=== PATIENT | male | born 1970 | race Caucasian/White ===

== ENCOUNTER 2019-01-03 12:51 | Outpatient (CLI) | payer BC ==
--- NOTE | 2019-01-03 15:03 | ULT ---
BILATERAL UPPER EXTREMITY VENOUS DOPPLER ULTRASOUND FOR DIALYSIS ACCESS: Date: 01/03/19 FINDINGS: RIGHT UPPER EXTREMITY: The right cephalic vein measures 1.9 mm in the proximal arm, 2.2 mm in the mid arm, 1.5 mm in the dis brittaney arm, 1.9 mm in the antecubital fossa, 3.2 mm in the proximal forearm, 2.4 mm in the mid forearm, and 2.2 mm in the distal forearm. The right basilic vein measures 6.4 mm in the proximal arm, 5.9 mm in the mid arm, 5.9 mm in the dist al arm, 4.7 mm in the antecubital fossa, 2.8 mm in the proximal forearm, 1.5 mm in the mid forearm, a nd 1.5 mm in the distal forearm. The right brachial artery measures 3.5 mm, radial artery measures 0.8 mm, and ulnar artery measures 2 .2 mm. LEFT UPPER EXTREMITY: The left cephalic vein measures 1.7 mm in the proximal arm, 1.3 mm in the mid arm, 1.1 mm in the dist al arm, 1.5 mm in the antecubital fossa, 2.8 mm in the proximal forearm, 3.6 mm in the mid forearm, a nd 2.9 mm in the distal forearm. The left basilic vein measures 6.8 mm in the proximal arm, 6.8 mm in the mid arm, 6.5 mm in the dista l arm, 4.8 mm in the antecubital fossa, 1.1 mm in the proximal forearm, 1.5 mm in the mid forearm, an d 1.5 mm in the distal forearm. The left brachial artery measures 4.1 mm, radial artery measures 1.3 mm, and ulnar artery measures 2. 5 mm. POS: TPC
== END 2019-01-03 12:52 | disposition home or self-care (01) ==
LOC: BICULT 12:51
PROVIDERS: ATTEND Internal Medicine
DX: Z01.818 Encounter for other preprocedural examination (principal); N18.6 End stage renal disease
CPT/HCPCS: 93970; G0365

== ENCOUNTER 2019-06-06 06:07 | Day surgery (SDC) | payer BC ==
--- NOTE | 2019-05-01 12:17 | HP ---
HISTORY OF PRESENT ILLNESS: Dario Garcia is a 49-year-old male patient, recently had problems with sinus bradycardia resulting in syncope at the dialysis center leading him to have a transfemoral cardiac pacemaker placed and since then has been feeling much better. We previously had scheduled a left arm fistula, and he is ready to have that done. He is considered peritoneal dialysis, but has decided against this. Plan is for left arm fistula or dialysis graft. He understands risks and benefits, procedures and consents. Vein mapping suggested, we might be able to do a seminal fistula. We will explore that in the operating room under regional TIVA. MEDICATIONS: Carvedilol b.i.d. PAST MEDICAL HISTORY: Hypertension; hyperlipidemia; diabetes; end-stage renal disease, on maintenance dialysis Wednesday, Wednesday, and Wednesday at [facility]. Recently had a pacemaker placed, evaluated in [place]. Followup with Dr. Kleber Buckley in [place]. HABITS: Tobacco, none. Alcohol, none. PAST SURGICAL HISTORY: Hemodialysis catheter, right IJ; right knee surgery; pacemaker placed. PHYSICAL EXAMINATION: VITAL SIGNS: Weight 139 pounds, 5 feet 7 inches, 21 BMI, blood pressure 101/54, pulse 71, temperature 98.1 degrees. HEAD, EYES, EARS, NOSE, AND THROAT: Unremarkable. LUNGS: Clear to auscultation. CARDIAC: Rhythm without murmur or gallop. ABDOMEN: Soft and nontender. No masses. Palpable radial pulses bilaterally. Hemodialysis catheter right IJ. EXTREMITIES: Without edema. ASSESSMENT: End-stage renal disease, on maintenance dialysis Wednesday, Wednesday, and Wednesday in [facility]. PLAN: Placement of hemodialysis fistula, left arm, probably less likely graft. He understands risks and benefits. Job ID: [id number]
[2019-06-05 11:53] VITALS: BMI 21.1
[2019-06-06] MEDS ORDERED: Bupivacaine HCl 0.5%/Epinephrine 1:200,000/PF 30 ml Vial ONE (06:54)
[2019-06-06] MEDS ORDERED: Heparin 5,000 UNITS/ML VIAL ONE (06:54)
[2019-06-06] MEDS ORDERED: Ioversol 68 % 50 ML VIAL ONE (07:01)
[2019-06-06] MEDS ORDERED: Protamine Sulfate 50 MG/5 ML VIAL ONE (07:01)
[2019-06-06] MEDS ORDERED: Lidocaine 2% PF 5 ML VIAL ONE (07:01)
[2019-06-06] MEDS ORDERED: Fentanyl 100 MCG/2 ML VIAL ONE (07:02)
[2019-06-06 07:28] LABS: #Basophils 0.1 thou/uL (0.0-0.2); #Eosinphils 0.8 thou/uL (0.0-0.7); #Lymphocytes 2.1 thou/uL (1.20-3.40); #Monocytes 0.7 thou/uL (0.11-0.59); #Neutrophils 4.2 thou/uL (1.40-6.50); %Basophils 0.8 % (0.0-1.0); %Eosinophils 9.9 % (0.0-10.0); %Lymphocytes 26.6 % (21.0-51.0); %Monocytes 9.4 % (0.0-10.0); %Neutrophils 53.3 % (42.0-75.0); Hemoglobin 10.7 g/dL (14.0-18.0); Mean Corpuscular HGB CONC 35.4 g/dL (32.0-36.0); Mean Corpuscular Hemoglobin 35.8 pg (27.0-31.0); Mean Platelet Volume 7.1 fL (7.4-10.4); Platelet Count 252 thou/uL (130-400); RBC Distribution Width 14.4 % (11.5-14.5); White Blood Cell (WBC) Count 7.9 thou/uL (4.8-10.8)
[2019-06-06 07:49] LABS: Chloride 96 mmol/L (98-107); Potassium 3.7 mmol/L (3.5-5.1); Sodium 136 mmol/L (136-145)
[2019-06-06 07:50] LABS: Calcium 9.4 mg/dL (7.8-10.44); Glucose 249 mg/dL (70-105)
[2019-06-06 07:52] LABS: Anion Gap 13 mmol/L (10-20); Carbon Dioxide 31 mmol/L (22-29)
[2019-06-06 07:54] LABS: Calc. Creatinine Clearance 16 mL/min (70-130); Estimated GFR-MDRD 12
[2019-06-06 07:55] LABS: BUN (Urea Nitrogen) 22 mg/dL (8.9-20.6)
[2019-06-06] MEDS ORDERED: Heparin 10,000 UNITS/ 10 ML VIAL ONE (10:18)
--- NOTE | 2019-06-06 11:19 | OP ---
DATE OF PROCEDURE: 06/06/2019 PREOPERATIVE DIAGNOSES: End-stage renal disease, right internal jugular cuffed tunneled dialysis catheter. POSTOPERATIVE DIAGNOSES: End-stage renal disease, right internal jugular cuffed tunneled dialysis catheter without cephalic vein, left upper arm. PROCEDURES PERFORMED: Left arm primary fistula, perforating branch antecubital vein to the proximal radial artery with outflow through the basilic vein only with retrograde antecubital vein preserved, 4 mm coronary dilator calibration, excellent caliber vein and proximal radial artery. ANESTHESIA: General, local 0.5% Marcaine with epinephrine 30 mL mixed with 2% Xylocaine 10 mL, 20 mL volume mixture used. DESCRIPTION OF PROCEDURE: The patient was taken to the operating room, where under general anesthesia, left upper extremity was prepared with ChloraPrep and draped in routine fashion. Local anesthetic was infiltrated in the skin and subcutaneous tissue about the operative site. Incision was made in the proximal volar forearm below the antecubital fossa, carried down through skin and subcutaneous tissue, antecubital vein of excellent caliber, dissected free. Perforating branch dissected free. There was no communication to a cephalic vein. Cephalic vein could not be found. There was only basilic vein outflow. The vein was so large that an incision was made at the left wrist and carried down to skin and subcutaneous tissue, and the cephalic vein at the wrist was too small and subcutaneous tissue was approximated with 3-0 Monocryl, skin with subdermal 4-0 Monocryl and Gisela glue applied. Attention was then turned to the proximal forearm wound, where the proximal radial artery was dissected free with excellent caliber, and the patient was given 6000 units of heparin intravenously. After adequate circulation time, the perforating branch of the antecubital vein dissected free divided between clips. It was spatulated over branch point and interrogated with coronary dilators, placed in coronary dilators from 2 mm to 4 mm out the basilic vein outflow. Proximal radial artery clamped proximally and distally. Longitudinal arteriotomy was made sharply and end vein to side proximal artery anastomosis completed with continuous suture of 6-0 Prolene. Releasing the vascular clamps noting good Doppler signal in the basilic vein outflow. The patient tolerated procedure well. Good hemostasis was noted. Subcutaneous tissue was approximated with 3-0 Monocryl, skin with subdermal 4-0 Monocryl and Gisela glue applied. Local anesthetic infiltrated about the operative sites. Job ID: [id number]
== END 2019-06-06 10:30 | disposition home or self-care (01) ==
LOC: SDC 06:07
PROVIDERS: ATTEND Specialist
PROC: 031C0ZF Bypass Left Radial Artery to Lower Arm Vein, Open Approach (ICD-10-PCS; principal; 2019-06-06)
DX: I12.0 Hypertensive chronic kidney disease with stage 5 chronic kidney disease or end stage renal disease (principal); E11.22 Type 2 diabetes mellitus with diabetic chronic kidney disease; N18.6 End stage renal disease; E78.5 Hyperlipidemia, unspecified; I25.10 Atherosclerotic heart disease of native coronary artery without angina pectoris; Z79.82 Long term (current) use of aspirin; Z79.84 Long term (current) use of oral hypoglycemic drugs; Z79.899 Other long term (current) drug therapy; Z95.0 Presence of cardiac pacemaker; Z99.2 Dependence on renal dialysis
CPT/HCPCS: 36415; 80048; 85025; J0670; J0690; J1644; J2001; J2720; J3010; Q9967

== ENCOUNTER 2019-07-06 07:13 | Outpatient (CLI) | payer BC ==
[2019-07-06 13:12] LABS: #Basophils 0.1 thou/uL (0.0-0.2); #Eosinphils 0.6 thou/uL (0.0-0.7); #Lymphocytes 2.3 thou/uL (1.20-3.40); #Monocytes 0.7 thou/uL (0.11-0.59); %Eosinophils 7.2 % (0.0-10.0); %Lymphocytes 26.4 % (21.0-51.0); %Monocytes 7.9 % (0.0-10.0); %Neutrophils 57.5 % (42.0-75.0); Hemoglobin 13.8 g/dL (14.0-18.0); Mean Corpuscular HGB CONC 33.5 g/dL (32.0-36.0); Mean Corpuscular Hemoglobin 35.3 pg (27.0-31.0); Mean Platelet Volume 7.7 fL (7.4-10.4); Platelet Count 275 thou/uL (130-400); RBC Distribution Width 15.8 % (11.5-14.5); White Blood Cell (WBC) Count 8.8 thou/uL (4.8-10.8)
[2019-07-06 13:28] LABS: Anion Gap 20 mmol/L (10-20); BUN (Urea Nitrogen) 30 mg/dL (8.9-20.6); Calc. Creatinine Clearance 0 mL/min (70-130); Calcium 9.6 mg/dL (7.8-10.44); Carbon Dioxide 24 mmol/L (22-29); Chloride 98 mmol/L (98-107); Estimated GFR-MDRD 8; Glucose 230 mg/dL (70-105); Potassium 4.1 mmol/L (3.5-5.1); Sodium 138 mmol/L (136-145)
== END 2019-07-06 07:14 | disposition home or self-care (01) ==
LOC: LABBT 07:13
PROVIDERS: ATTEND Specialist
DX: Z01.818 Encounter for other preprocedural examination (principal); N18.6 End stage renal disease
CPT/HCPCS: 80048; 85025; 93005; 93010

== ENCOUNTER 2019-07-11 11:59 | Day surgery (SDC) | payer BC ==
[2019-07-06 11:33] VITALS: BMI 21.1
--- NOTE | 2019-07-10 11:56 | HP ---
HISTORY OF PRESENT ILLNESS: Dario Garcia is a 49-year-old male, dialyzes at [facility] in [place], Wednesday, Wednesday, and Wednesday. He had a left upper arm fistula placed on 06/06/2019, outflow only, basilic vein. Cephalic vein was fibrotic and occluded. The patient will need a basilic vein transposition fistula in the next 2 to 3 weeks. We will plan this under general or regional per Anesthesia choice, IV access and blood draws through his dialysis catheter. He understands risks and benefits, consents. Occasionally, the patient intermittently has some numbness in his finger tips or thumb. He is on Neurontin 300 mg three times a day. I have reassured him this would improve with time. This has only been present since his surgery. The patient has a pacemaker placed in the past. MEDICATIONS: 1. Losartan. 2. Furosemide. 3. Carvedilol. 4. Fenofibrate. PAST MEDICAL HISTORY: Hypertension, dyslipidemia, diabetes, end-stage renal disease. PAST SURGICAL HISTORY: Right knee surgery, laser surgery, back, , Dr. Kleber Buckley placed a pacemaker. PHYSICAL EXAMINATION: VITAL SIGNS: Weight 136 pounds. Height, 5 feet and 7 inches HEAD EARS EYES, NOSE, AND THROAT: Unremarkable. LUNGS: Clear to auscultation . ABDOMEN: Soft and nontender. EXTREMITIES: Left arm basilic vein fistula outflow well healed. Good left hand strength. Warm fingers. Palpable radial pulse. ASSESSMENT AND PLAN: Basilic vein fistula in need of transposition. We will plan this under general or regional anesthesia per Anesthesia choice, evaluation on the date of surgery, he understands risks and benefits of surgery and consents. Job ID: [id number]
[2019-07-11] MEDS ORDERED: Heparin 10,000 UNITS/ 10 ML VIAL ONE (14:47)
== END 2019-07-11 15:05 | disposition home or self-care (01) ==
LOC: SDC 11:59
PROVIDERS: ATTEND Specialist
DX: I12.0 Hypertensive chronic kidney disease with stage 5 chronic kidney disease or end stage renal disease (principal); E11.22 Type 2 diabetes mellitus with diabetic chronic kidney disease; N18.6 End stage renal disease; Z53.9 Procedure and treatment not carried out, unspecified reason
CPT/HCPCS: 36416; J0690; J1644

== ENCOUNTER 2019-07-26 05:54 | Inpatient (IN) | payer BC ==
[2019-07-26] MEDS ORDERED: Propofol 500 MG/50 ML VIAL ONE (06:09)
[2019-07-26] MEDS ORDERED: Ioversol 68 % 50 ML VIAL ONE (06:18)
[2019-07-26] MEDS ORDERED: Protamine Sulfate 50 MG/5 ML VIAL ONE (06:18)
[2019-07-26] MEDS ORDERED: Bupivacaine HCl 0.5%/Epinephrine 1:200,000/PF 30 ml Vial ONE ×2 (06:18→09:25)
[2019-07-26] MEDS ORDERED: Lidocaine 2% PF 5 ML VIAL ONE (06:18)
[2019-07-26] MEDS ORDERED: Heparin 5,000 UNITS/ML VIAL ONE (06:18)
[2019-07-26 06:32] LABS: #Basophils 0.1 thou/uL (0.0-0.2); #Eosinphils 0.8 thou/uL (0.0-0.7); #Lymphocytes 2.6 thou/uL (1.20-3.40); #Monocytes 0.7 thou/uL (0.11-0.59); #Neutrophils 4.9 thou/uL (1.40-6.50); %Basophils 1.2 % (0.0-1.0); %Eosinophils 8.4 % (0.0-10.0); %Lymphocytes 28.6 % (21.0-51.0); %Monocytes 7.4 % (0.0-10.0); %Neutrophils 54.5 % (42.0-75.0); Mean Corpuscular HGB CONC 34.2 g/dL (32.0-36.0); Mean Corpuscular Hemoglobin 34.7 pg (27.0-31.0); Mean Platelet Volume 7.2 fL (7.4-10.4); Platelet Count 225 thou/uL (130-400); RBC Distribution Width 13.4 % (11.5-14.5); Red Blood Cell (RBC) Count 3.74 mill/uL (4.70-6.10); White Blood Cell (WBC) Count 9.1 thou/uL (4.8-10.8)
[2019-07-26] MEDS ORDERED: Fentanyl 100 MCG/2 ML VIAL ONE ×2 (06:37→09:46)
[2019-07-26] MEDS ORDERED: Midazolam HCl 2 mg/2 ml Vial ONE (06:37)
[2019-07-26 07:01] LABS: Anion Gap 17 mmol/L (10-20); BUN (Urea Nitrogen) 32 mg/dL (8.9-20.6); Calc. Creatinine Clearance 0 mL/min (70-130); Calcium 9.9 mg/dL (7.8-10.44); Carbon Dioxide 27 mmol/L (22-29); Chloride 95 mmol/L (98-107); Estimated GFR-MDRD 11; Glucose 229 mg/dL (70-105); Potassium 4.2 mmol/L (3.5-5.1); Sodium 135 mmol/L (136-145)
[2019-07-26] MEDS ORDERED: PROPOFOL 200 MG/20 ML VIAL ONE (09:25)
[2019-07-26] MEDS ORDERED: PHENYLEPHRINE-NS 100 MCG/ML 10 ML SYRINGE ONE (09:25)
[2019-07-26] MEDS ORDERED: ePHEDrine/0.9% NaCl/PF SYRINGE 50 mg/10 ml ONE (09:25)
--- NOTE | 2019-07-26 09:26 | OP ---
DATE OF PROCEDURE: 07/26/2019 PREOPERATIVE DIAGNOSIS: End-stage renal disease. POSTOPERATIVE DIAGNOSIS: End-stage renal disease. PROCEDURE PERFORMED: Left arm basilic vein transposition fistula. ANESTHESIA: Regional, TIVA. DESCRIPTION OF PROCEDURE: The patient was taken to the operating room where under intravenous sedation and regional anesthesia, left upper extremity was prepared with ChloraPrep and draped in routine fashion. Incision was made in the proximal volar forearm over through this old scar and carried down through skin and subcutaneous tissue of the medial upper arm to the axilla, carried down through skin and subcutaneous tissue, deep fascia, mobilizing the basilic vein, dividing branch between 4-0 silk ties and clips, mobilizing high in the axilla. A Marta-Chattyck tunneler was then used to create an anterior tunneled between the 2 incisions proximal forearm to the axilla. The patient was given 6000 units of heparin intravenously. The arterial inflow from the proximal radial artery was dissected free. Retrograde antecubital vein, cephalic vein forearm dissected free and doubly clipped distally and divided. The vein then transected, basilic vein and flushed with heparinized saline solution, distended nicely, connected to Marta Wick tunneler after marking it to prevent torsion. Vein brought through the tunnel and then disconnected from the tunneler and flushed with heparinized saline solution and flushed well and flowed well. The old stump from the arterial inflow was closed with continuous to and fro 6-0 Prolene and end basilic vein to forearm cephalic vein retrograde anastomosis created after spatulating the veins end-to-end anastomosis with 6-0 Prolene. After completing the anastomosis, the patient given 50 mg of protamine intravenously. There was good flow in the fistula. Avitene placed in the vein harvest bed, medial arm, good hemostasis noted. Subcutaneous tissue was approximated with 3-0 Monocryl, skin with phill. The patient tolerated the procedure well. Job ID: [id number]
[2019-07-26] MEDS ORDERED: hydrALAZINE 20 MG/ML VIAL ONE (09:34)
[2019-07-26] MEDS ORDERED: Aspirin 325 mg Enteric Coated Tablet ONE (09:34)
[2019-07-26] MEDS ORDERED: Nitroglycerin 0.4 MG TAB (25 Tab Bottle) ONE (09:35)
--- NOTE | 2019-07-26 09:51 | RAD ---
XR Chest 1 View Portable HISTORY: Chest pain COMPARISON: 05/02/2019 FINDINGS: The heart size is normal. Right sided venous catheter remains in place. The lungs are well expanded without pneumothorax or pleural effusions. There is a patchy infiltrate in the left lower lung. IMPRESSION: Findings suspicious for left-sided pneumonia.
[2019-07-26 10:44] LABS: CKMB 5.9 ng/mL (0-6.6); Troponin I 0.033 ng/mL (< 0.028)
[2019-07-26] MEDS ORDERED: Ketorolac Tromethamine 30 MG/ML VIAL ONE (12:15)
[2019-07-26 12:37] LABS: Troponin I 0.014 ng/mL (< 0.028)
[2019-07-26 12:39] LABS: CKMB 6.7 ng/mL (0-6.6)
--- NOTE | 2019-07-26 14:27 | CON ---
DATE OF CONSULTATION: REASON FOR CONSULTATION: Chest pain. PRIMARY CARE PHYSICIAN: Sravan Spencer MD HISTORY OF PRESENT ILLNESS: Mr. Garcia is a 49-year-old gentleman, who is a patient of Mr. Kleber Buckley. He has a previous history of VVIR implantable pacemaker performed at [facility]. He recently had AV fistula revision. After waking up from anesthesia, he developed chest pain. His pain appears worse with sitting up. It also appears worse with taking a deep breath. His pain initially was 8/10. During my arrival, his pain was down to 3/10. Nitroglycerin did not relieve his symptoms. Fentanyl did help. PAST MEDICAL HISTORY: End-stage renal disease, sick sinus syndrome, hyperlipidemia, hypertension, diabetes mellitus. CURRENT MEDICATIONS: Include, 1. Losartan. 2. Lasix. 3. Carvedilol. 4. Fenofibrate. PAST SURGICAL HISTORY: Knee surgery, pacemaker placement, back surgery. REVIEW OF SYSTEMS: A 10-point review of systems is reviewed as above, otherwise negative. PHYSICAL EXAMINATION: GENERAL: Patient is a pleasant gentleman who is in no acute distress. He does appear older than stated age. He does appear to be resting comfortably. VITAL SIGNS: Blood pressure 110/70, pulse 80, respirations 20. NEUROLOGIC: The patient is alert and oriented x3 with no focal neurologic deficits. HEENT: Sclerae without icterus. Mouth has moist mucous membranes with normal pallor. NECK: No JVD. Carotid upstroke brisk. No bruits bilaterally. LUNGS: Clear to auscultation with unlabored respirations. BACK: No scoliosis or kyphosis. CARDIAC: Regular rate and rhythm with normal S1 and S2. No S3 or S4 noted. No significant rubs, murmurs, thrills, or gallops noted throughout the precordium. PMI is not displaced. There is no parasternal heave. ABDOMEN: Soft, nontender, nondistended. No peritoneal signs present. No hepatosplenomegaly. No abnormal striae. EXTREMITIES: 2+ femoral and 2+ dorsalis pedis pulses. No cyanosis, clubbing, or edema. SKIN: No gross abnormalities. PERTINENT LABORATORY DATA: Initial troponin of 0.033, which is borderline and decreased to 0.014 on followup. Creatinine 5.77, sodium 135, BUN 32. Hemoglobin 13, hematocrit 37. EKG showed normal sinus rhythm with ST-T wave changes noted suggesting LVH. IMPRESSION: 1. Atypical chest pain. 2. End-stage renal disease. 3. Diabetes. 4. Hypertension. RECOMMENDATIONS: The patient's symptoms are atypical for angina. His initial troponins are negative for myocardial ischemia or infarction. At this point, continue to treat medically. I would recommend one dose of Toradol 30 mg IV. This again appears to be more musculoskeletal in origin based on his symptoms. He did have a recent stress study performed 2 months ago that was negative for ischemia per Dr. Sravan Spencer. Otherwise, I have no further recommendations. Job ID: [id number]
[2019-07-26] MEDS ORDERED: HYDROcodone/Acetaminophen 10/325 mg Tablet PO PRN (15:37)
[2019-07-26] MEDS ORDERED: Morphine 2 MG/ML SYRINGE SLOW IVP PRN (15:37)
[2019-07-26] MEDS ORDERED: Ondansetron ODT 4 MG TAB PO PRN (15:37)
[2019-07-26] MEDS ORDERED: Ondansetron PF 4 MG/2 ML Vial IVP PRN (15:37)
[2019-07-26] MEDS ORDERED: Morphine 4 MG/ML VIAL SLOW IVP PRN (15:37)
[2019-07-26] MEDS ORDERED: hydrALAZINE 20 MG/ML VIAL SLOW IVP PRN (15:37)
[2019-07-26] MEDS ORDERED: Acetaminophen 500 MG TAB PO PRN (15:40)
[2019-07-26] MEDS ORDERED: HYDROcodone/Acetaminophen 5/325 mg Tablet PO PRN (15:41)
[2019-07-26] MEDS ORDERED: Heparin 10,000 UNITS/ 10 ML VIAL ONE ×2 (15:55→15:58)
[2019-07-26 15:56] LABS: Troponin I 0.015 ng/mL (< 0.028)
[2019-07-26 16:00] LABS: CKMB 7.2 ng/mL (0-6.6)
[2019-07-26] MEDS: HYDROcodone/Acetaminophen 10/325 mg Tablet PO PRN (18:06)
[2019-07-26 19:34] VITALS: BMI 24.5
[2019-07-26] MEDS ORDERED: LIRAGLUTIDE SC SCH (21:00)
[2019-07-26] MEDS ORDERED: Atorvastatin Calcium 40 MG TAB PO SCH (21:00)
[2019-07-26] MEDS ORDERED: tiZANidine HCl 4 MG TAB PO SCH (21:00)
[2019-07-26] MEDS ORDERED: Losartan 25 MG TAB PO SCH (21:00)
[2019-07-26] MEDS: Gabapentin 300 MG CAP PO SCH (21:12)
[2019-07-27] MEDS: HYDROcodone/Acetaminophen 10/325 mg Tablet PO PRN ×2 (03:10→10:20)
[2019-07-27 06:45] LABS: CKMB 5.7 ng/mL (0-6.6)
[2019-07-27] MEDS ORDERED: Ibuprofen 600 MG TAB PO PRN (07:48)
[2019-07-27] MEDS ORDERED: Ibuprofen 200 MG TAB PO PRN (07:56)
[2019-07-27] MEDS ORDERED: FLU VACC QS2019-20(6MOS UP)/PF 60 MCG/0.5 ML SYRINGE IM ONE (09:00)
[2019-07-27] MEDS ORDERED: Carvedilol 3.125 MG TAB PO SCH (09:00)
[2019-07-27] MEDS ORDERED: Aspirin Chewable 81 MG TAB PO SCH (09:00)
--- NOTE | 2019-07-27 09:47 | DIS ---
DATE OF ADMISSION: 07/26/2019 DATE OF DISCHARGE: 07/27/2019 DISCHARGE DIAGNOSES: 1. End-stage renal disease, on maintenance dialysis Wednesday, Wednesday, and Wednesday. 2. Basilic vein transposition fistula, left arm under regional anesthesia. 3. 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 4. Epigastric/xiphoid pain postoperatively requiring admission noting normal serial troponins 0.044, 0.015, 0.014, 0.033 with normal EKGs and chest x-ray demonstrating phrenic nerve palsy secondary to regional anesthesia. CONSULTATION: Dr. Steve. Observation overnight on telemetry. HISTORY: A 49-year-old male with end-stage renal disease, presented for transposition of his left basilic vein due to occluded cephalic vein under regional anesthesia. Postoperatively, he complained of chest pain, evaluated, hospitalized overnight, and seen by Dr. Steve. Care discussed with him and seen by Dr. Steve. The patient had negative cardiac stress test several weeks ago. His EKGs were normal. It was felt that his pain was noncardiac and probably related to his regional anesthesia and phrenic nerve palsy. This improved by the morning of discharge. He was tolerating his diet. He has good thrill and bruit in his left arm basilic vein fistula. He was instructed to remove the Mart wrap from his left arm tomorrow, Wednesday, or Wednesday and remove all dressings, begin daily washing the wound with soap and water and apply a wrap or leave open as per preference. He should use the arm for daily activities. He was sent home with [place] 5/325 p.r.nMitzy lima. He is to follow up in my office in 2 weeks to remove his phill. He will call sooner if there are any problems. He was advised to follow up with Dr. Kleber Buckley, his print designer as an outpatient. Job ID: [id number]
[2019-07-27] MEDS: Gabapentin 300 MG CAP PO SCH (10:09)
[2019-07-27 10:44] VITALS: BP 163/76; TEMP 98.2
--- NOTE | 2019-07-30 16:09 | EKG ---
Test Reason : POST OP C/O C-PAIN Blood Pressure : / mmHG Vent. Rate : 082 BPM Atrial Rate : 082 BPM P-R Int : 212 ms QRS Dur : 096 ms QT Int : 388 ms P-R-T Axes : 082 003 134 degrees QTc Int : 453 ms Sinus rhythm with 1st degree A-V block Abnormal ECG When compared with ECG of 06-JUL-2019 12:00, Electronic demand pacing is no longer Present Premature ventricular complexes are no longer Present Sinus rhythm is no longer with ventricular escape complexes Confirmed by DR. Bobo PACHECO ([id number]) on 07/30/2019 4:09:24 PM Referred By: MERI Confirmed By:DR. Bobo PACHECO
== END 2019-07-27 11:03 | disposition home or self-care (01) | DRG 252 ==
LOC: SDC 05:54 → 2NO 17:58
PROVIDERS: ADMIT Specialist; ATTEND Specialist
PROC: 051C0ZY Bypass Left Basilic Vein to Upper Vein, Open Approach (ICD-10-PCS; principal; 2019-07-26)
DX: T82.590A Other mechanical complication of surgically created arteriovenous fistula, initial encounter (principal); N18.6 End stage renal disease; I12.0 Hypertensive chronic kidney disease with stage 5 chronic kidney disease or end stage renal disease; R07.89 Other chest pain; E11.22 Type 2 diabetes mellitus with diabetic chronic kidney disease; Z99.2 Dependence on renal dialysis; E78.5 Hyperlipidemia, unspecified; G58.8 Other specified mononeuropathies; T88.59XA Other complications of anesthesia, initial encounter
CPT/HCPCS: 36415; 36416; 71045; 80048; 82553; 84484; 85025; 93005; 93010; J0360; J0670; J0690; J1644; J1885; J2001; J2250; J2704; J2720; J3010; Q9967

== ENCOUNTER 2019-07-28 20:14 | Observation (INO) | payer BC ==
[2019-07-28 22:17] LABS: Troponin I 0.041 ng/mL (< 0.028)
[2019-07-28 23:55] VITALS: BMI 20.7
[2019-07-29] MEDS ORDERED: HYDROcodone/Acetaminophen 10/325 mg Tablet PO PRN ×3 (01:36→09:58)
[2019-07-29 03:07] LABS: Troponin I 0.015 ng/mL (< 0.028)
[2019-07-29 05:43] LABS: Troponin I 0.021 ng/mL (< 0.028)
[2019-07-29] MEDS ORDERED: Dextrose 50% Abboject 50 ML SYRINGE SLOW IVP PRN (09:56)
[2019-07-29] MEDS ORDERED: Guaifenesin DM 100-10/5 ML UDCUP PO PRN (09:56)
[2019-07-29] MEDS ORDERED: Acetaminophen 325 MG TAB PO PRN (09:56)
[2019-07-29] MEDS ORDERED: HumaLOG 300 UNITS/3 ML VIAL SC PRN (09:56)
[2019-07-29] MEDS ORDERED: Ondansetron PF 4 MG/2 ML Vial IVP PRN (09:56)
[2019-07-29] MEDS ORDERED: Bisacodyl 10 MG SUPP PR PRN (09:56)
[2019-07-29] MEDS ORDERED: Senokot S 8.6-50 MG TAB PO PRN (09:56)
[2019-07-29] MEDS ORDERED: Dextrose 5% in Water 1,000 ML IV PRN (09:56)
[2019-07-29] MEDS: HumaLOG 300 UNITS/3 ML VIAL SC PRN (12:30)
[2019-07-29] MEDS: Morphine 2 MG/ML SYRINGE SLOW IVP PRN ×2 (12:30→18:51)
[2019-07-29] MEDS ORDERED: Gabapentin 300 MG CAP PO SCH (12:45)
--- NOTE | 2019-07-29 13:21 | CT ---
Exam: CT angiogram of the chest HISTORY: Chest pain radiating to the back and shoulders COMPARISON: None TECHNIQUE: CT angiogram of the chest is performed in the axial plane. Three-dimensional reformatted i mages are submitted for interpretation FINDINGS: Mediastinum: Stable right paratracheal lymph node measuring 1.5 x 1.0 cm (previously measuring 1.4 x 0.9 cm) HEART: Normal size. No significant pericardial fluid. Reflux of contrast into the inferior vena cava suggesting component of right heart failure Aorta: No aneurysm or dissection Upper solid abdominal viscera: No abnormality enhancement. Trachea and central bronchi: Patent Pleural spaces: No effusion Lung parenchyma: Right lung: Minimal atelectatic changes. There is scarring and/or subsegmental atelectasis in the rig ht upper lobe, middle lobe and lower lobe. No suspicious masses or consolidation Left lung: Subsegmental atelectasis or scar in the left lower lobe. No suspicious masses or consolida tion Pneumothorax: None Osseous structures: No lytic or blastic lesions Pulmonary arteries: Adequate contrast opacification pulmonary arterial system to the level of segment al arteries. No filling defect to suggest pulmonary embolism IMPRESSION: 1. No evidence of pulmonary artery embolism to the level of segmental arteries 2. Stable nonspecific, nonenlarged mediastinal lymph nodes 3. Subsegmental atelectasis and scarring lung parenchyma. Platelike atelectasis in the left lower lob e.
--- NOTE | 2019-07-29 13:22 | RAD ---
EXAM: Chest PA and lateral: HISTORY: Phrenic palsy. Infiltrate COMPARISON: 07/26/2019 FINDINGS: Stable right-sided HemoSplit dialysis catheter. Heart: Normal cardiac silhouette Aorta: Unremarkable Pulmonary vessels: Normal Costophrenic angles: Costophrenic angles are clear. Lungs: Subsegmental atelectasis and scarring in the lung parenchyma. Pneumothorax: No pneumothorax Osseous structures: No osseous abnormalities IMPRESSION: No acute cardiopulmonary process.
[2019-07-29] MEDS: HYDROcodone/Acetaminophen 10/325 mg Tablet PO PRN (16:08)
--- NOTE | 2019-07-29 16:13 | HP ---
REASON FOR ADMISSION: Chest pain. HISTORY OF PRESENTING ILLNESS: The patient gives history of having AV fistula placed on Wednesday. This was done in the left upper extremity by Dr. Spencer. Postop, the patient developed retrosternal chest pain radiating to the back and left shoulder. He had consultation with Dr. Steve then. This was deemed to be noncardiac pain and he was given a dose of Toradol and got discharged. evening, the patient was still groggy when he went home. He was also feeling dizzy and he had some mild chest pain, still persisting. Wednesday, he had hemodialysis and 3 hours into dialysis the patient's blood pressure dropped to 88/50. He felt dizzy and wanted to use the restroom. He had his bowel movement and the patient was trying to get connected back to the hemodialysis, but then developed chest pain. He was transferred to [facility] in [place]. The patient states his chest pain is 8/10 in intensity. He got some IV pain medications and the pain came down 7/10, currently it is around 6/10. There is no complaints of cough or expectoration. No fever. There is pain in the left upper extremity fistula site. No PND or orthopnea. He mobilizes and ambulates by himself. PAST MEDICAL AND SURGICAL HISTORY: Prior cardiac catheterization done in February of 2019 at [facility] with no intervention done likely normal coronaries. He has had intracardiac pacemaker placed by transcatheter route at [facility] in February of 2019. He has had a nuclear stress test here in April of this year which showed no reversible ischemia; diabetes mellitus type 2, hypertension , end-stage renal disease, on hemodialysis from Wednesday, Wednesday, Wednesday from October of this year; hypothyroidism; he has had knee surgery; he has had a nerve ablation in the back. MEDICATIONS: Current medication; 1. Norvasc 10 mg daily. 2. Atorvastatin 80 mg p.o. at bedtime. 3. Coreg 3.125 mg twice daily. 4. Gabapentin 300 mg p.o. at bedtime. 5. Levothyroxine 50 mcg p.o. daily. 6. Victoza daily. 7. Losartan 75 mg p.o. daily. 8. Hydralazine 50 mg three times daily. ALLERGIES: INTOLERANT TO METFORMIN. PERSONAL HISTORY: Does not abuse alcohol or drugs. No history of smoking. 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 FAMILY HISTORY: The patient was adopted. His biological mom is living and has history of CVA. He does not know much about his biological father. The patient states he is in the process of getting from his . CODE STATUS: Full. Power of claim attorney is still his per the patient. REVIEW OF SYSTEMS: CONSTITUTIONAL: Negative for weight loss or gain, ability to conduct usual activities. SKIN: Negative for rash, itching. EYES: Negative for double vision, pain. ENT/MOUTH: Negative for nose bleeding, neck stiffness, pain, tenderness. CARDIOVASCULAR: Negative for palpitations, dyspnea on exertion, orthopnea. RESPIRATORY: Negative for shortness of breath, wheezing, cough, hemoptysis, fever or night sweats. GASTROINTESTINAL: Negative for poor appetite, abdominal pain, heartburn, nausea , vomiting, constipation, or diarrhea. GENITOURINARY: Negative for urgency, frequency, dysuria, nocturia. MUSCULOSKELETAL: Negative for pain, swelling. NEUROLOGIC/PSYCHIATRIC: Negative for anxiety, depression. ALLERGY/IMMUNOLOGIC: Negative for skin rash, bleeding tendency. PHYSICAL EXAMINATION: GENERAL: The patient is a 49-year-old male, who is currently not in any acute distress. VITAL SIGNS: Blood pressure 131/80, pulse 84 per minute, respiratory rate 18 per minute, temperature 98.4 degrees Fahrenheit, saturating 96% on room air. NECK: Supple. No elevated JVD. HEENT: Eyes; extraocular muscles intact. Pupils reacting to light. Oral cavity, mucous membranes are moist. No exudates or congestion. CARDIOVASCULAR: S1 and S2 heard. Regular rhythm. RESPIRATORY SYSTEM: Air entry 1+ bilateral. No rales or rhonchi. ABDOMEN: Soft, bowel sounds heard. No tenderness, rigidity, or guarding. EXTREMITIES: No peripheral edema or calf tenderness. Left upper extremity is in crepe bandage. Peripheral pulses are 1+ bilateral. No ischemic ulcerations or gangrene. CENTRAL NERVOUS CENTRAL: No gross focal deficits noted. The patient is alert, awake, oriented well. psychiatric system: The patient's mood is euthymic. No hallucinations or delusions. LABORATORY DATA: CT angio chest done shows no evidence of PE. No infiltrates seen. First troponin I 0.04. Subsequent two sets are negative. EKG done shows sinus rhythm at 73 beats per minute. There is incomplete RBBB seen. Corrected QT is 423 milliseconds. Serum glucose was 297, BUN 25, creatinine 5.1. Sodium 135, potassium 4.2, chloride 95, serum bicarb 25, calcium 9.0, AST 65, ALT 11, albumin 4.0. White count of 7.7, hemoglobin and hematocrit 11 and 34, platelet count is 198, MCV is 99 with 79% neutrophils. CLINICAL IMPRESSION AND PLAN: The patient will be under observation on telemetry for chest pain, which likely is noncardiac. The patient is having this pain from last almost 4 days off and on with radiation to the back and left shoulder. He has had a normal catheterization done in February of 2019. He has had a stress test done in April of this year, which showed no reversible ischemia. The patient has intracardiac pacemaker, hence echo with 2D Doppler will be obtained to see if he has any underlying issues with the pacemaker. Serial troponins have been negative now. We will continue his aspirin, Lipitor, Coreg, gabapentin, Victoza , Cozaar as before. He will be on morphine p.r.n. for pain along with [place] and tizanidine. We will closely monitor him on telemetry. Likely, the patient can be discharged once the echo is normal. Job ID: [id number] [facility]
[2019-07-29] MEDS ORDERED: Iopamidol-370 76% 500 ML 1 ML ONE (16:26)
[2019-07-29] MEDS: Gabapentin 300 MG CAP PO SCH (20:13)
[2019-07-29] MEDS ORDERED: Losartan 25 MG TAB PO SCH (21:00)
[2019-07-29] MEDS ORDERED: LIRAGLUTIDE SC SCH (21:00)
[2019-07-29] MEDS ORDERED: Atorvastatin Calcium 40 MG TAB PO SCH (21:00)
[2019-07-29] MEDS ORDERED: tiZANidine HCl 4 MG TAB PO SCH (21:00)
--- NOTE | 2019-07-29 22:27 | PRG ---
DATE OF SERVICE: SUBJECTIVE: Mr. Garcia is doing well. I have been asked to see. He is readmitted for chest pain. Previously, he was admitted a day after left arm basilic vein transposition fistula. He had a regional anesthesia and phrenic nerve palsy, he had pain after that. Prior to that in the last few weeks, he has had a negative cardiac stress test. The patient has pain in his chest. He complains of hurts with deep breathing and certain movements and is not cardiac. Dr. Steve saw him last hospitalization and cardiac enzymes were negative. Echocardiogram is normal, and it was felt that his pain was noncardiac and was discharged home. He did have a phrenic nerve palsy from his regional anesthesia that has resolved. His pain is more pleuritic. A chest x-ray was ordered today and there were no acute changes, had some subsegmental atelectasis. On admission this hospitalization, CT angiogram was obtained and was unremarkable. I have been asked to see him regarding pain in his left arm. This pain is expected. He had a basilic vein transposition fistula of left arm incision from his axilla to his proximal forearm. ASSESSMENT AND PLAN: The wound is healthy. It is normal to have some bleeding from the wound occasionally and this can be washed with soap and water daily in the bath or shower, patted dry and a gauze dressing can be placed to control the drainage or the wound can be left open if drainage is minimal. He needs to see me in my office in 2 weeks. From my standpoint, he can be discharged home at anytime. At this time, I will see him as needed. This pain, he complains of, has been worked up previously and is nonsurgical. Some of this may be due to atelectasis. We would encourage up in a chair, ambulation, incentive spirometer. I will see him as needed. Call if necessary. Job ID: [id number]
[2019-07-30] MEDS: HYDROcodone/Acetaminophen 10/325 mg Tablet PO PRN ×2 (03:43→12:49)
[2019-07-30 05:15] LABS: #Basophils 0.1 thou/uL (0.0-0.2); #Eosinphils 1.1 thou/uL (0.0-0.7); #Lymphocytes 2.5 thou/uL (1.20-3.40); #Monocytes 0.6 thou/uL (0.11-0.59); #Neutrophils 2.9 thou/uL (1.40-6.50); %Basophils 0.8 % (0.0-1.0); %Eosinophils 14.8 % (0.0-10.0); %Lymphocytes 34.9 % (21.0-51.0); %Monocytes 8.9 % (0.0-10.0); %Neutrophils 40.7 % (42.0-75.0); Hemoglobin 11.5 g/dL (14.0-18.0); Mean Corpuscular Hemoglobin 34.7 pg (27.0-31.0); Mean Platelet Volume 7.7 fL (7.4-10.4); Platelet Count 212 thou/uL (130-400); RBC Distribution Width 13.2 % (11.5-14.5); Red Blood Cell (RBC) Count 3.32 mill/uL (4.70-6.10); White Blood Cell (WBC) Count 7.1 thou/uL (4.8-10.8)
[2019-07-30 05:30] LABS: Anion Gap 20 mmol/L (10-20); BUN (Urea Nitrogen) 51 mg/dL (8.9-20.6); Calc. Creatinine Clearance 10 mL/min (70-130); Calcium 9.2 mg/dL (7.8-10.44); Carbon Dioxide 26 mmol/L (22-29); Chloride 91 mmol/L (98-107); Estimated GFR-MDRD 7; Glucose 199 mg/dL (70-105); Potassium 5.2 mmol/L (3.5-5.1); Sodium 132 mmol/L (136-145)
[2019-07-30] MEDS: HumaLOG 300 UNITS/3 ML VIAL SC PRN ×2 (05:31→12:09)
[2019-07-30] MEDS: Morphine 2 MG/ML SYRINGE SLOW IVP PRN (08:14)
[2019-07-30 08:16] VITALS: TEMP 97.8
[2019-07-30] MEDS: Gabapentin 300 MG CAP PO SCH (08:56)
[2019-07-30] MEDS ORDERED: Enoxaparin Sodium 30 MG/0.3 ML SYRINGE SC SCH (09:00)
[2019-07-30] MEDS ORDERED: Carvedilol 3.125 MG TAB PO SCH (09:00)
[2019-07-30] MEDS ORDERED: Aspirin Chewable 81 MG TAB PO SCH (09:00)
[2019-07-30] MEDS ORDERED: Mag-Al 1200 mg/1200 mg/30 ML UDCUP PO SCH (11:30)
[2019-07-30 11:44] VITALS: BP 120/64
--- NOTE | 2019-07-30 12:08 | PDOC.HOSPP ---
- Subjective Encounter Date: 07/30/19 Encounter Time: 12:07 Subjective: Patient seen and examined. No new complaints. No overnight events. chest pain is better. No N/V. - Objective Vital Signs & Weight: Vital Signs (12 hours) Temp Pulse Resp BP BP BP BP 07/30/19 11:12 97.8 F 77 18 114/62 100/63 120/64 07/30/19 08:54 126/69 07/30/19 07:32 97.8 F 76 18 97/51 L 07/30/19 04:04 98.1 F 74 18 160/72 H Pulse Ox 07/30/19 11:12 99 07/30/19 08:54 07/30/19 07:32 92 L 07/30/19 04:04 97 Weight Weight 132 lb 12.8 oz I&O: 07/29/19 07/30/19 07/31/19 06:59 06:59 06:59 Intake Total 240 400 240 Output Total 0 Balance 240 400 240 Result Diagrams: 07/30/19 04:56 07/30/19 04:56 Additional Labs: Accuchecks 07/30/19 07/30/19 07/29/19 10:45 05:31 20:27 POC Glucose 225 H 184 H 244 H 07/29/19 07/29/19 18:26 16:35 POC Glucose 185 H 118 H Hospitalist ROS - Medication Medications: Active Medications Generic Name Dose Route Start Last Admin Trade Name Freq PRN Reason Stop Dose Admin Hydrocodone Bitart/Acetaminophen 2 tab 07/29/19 09:58 07/30/19 03:43 [place] 10/325 PO 2 tab Q6H PRN Administration Severe Pain (7-10) Aspirin 81 mg 07/30/19 09:00 07/30/19 08:56 Aspirin Chewable PO 81 mg DAILY ANNIE Administration Atorvastatin Calcium 80 mg 07/29/19 21:00 07/29/19 20:13 Lipitor PO 80 mg HS ANNIE Administration Carvedilol 3.125 mg 07/30/19 09:00 07/30/19 08:56 Coreg PO 3.125 mg DAILY ANNIE Administration Enoxaparin Sodium 30 mg 07/30/19 09:00 07/30/19 08:56 Lovenox SC 30 mg 0900 ANNIE Administration Gabapentin 300 mg 07/29/19 21:00 07/30/19 08:56 Neurontin PO 300 mg BID ANNIE Administration Insulin Human Lispro 0 units 07/29/19 09:56 07/30/19 05:31 Humalog SC 2 unit .MODERATE SLIDING SC PRN Administration Moderate [place] Scale Insulin Human Lispro 0 units 07/29/19 09:56 07/29/19 20:31 Humalog SC 2 unit .BEDTIME SLIDING SC PRN Administration Bedtime Correctional Scale Losartan Potassium 25 mg 07/29/19 21:00 07/29/19 20:13 Cozaar PO 25 mg HS ANNIE Administration Morphine Sulfate 2 mg 07/29/19 11:35 07/30/19 08:14 Morphine SLOW IVP 2 mg Q4H PRN Administration Pain Ondansetron HCl 4 mg 07/29/19 09:56 07/30/19 05:22 Zofran IVP 4 mg Q6H PRN Administration Nausea/Vomiting Tizanidine HCl 4 mg 07/29/19 21:00 07/29/19 20:13 Zanaflex PO 4 mg HS ANNIE Administration - Exam General Appearance: NAD Eye: anicteric sclera ENT: normocephalic atraumatic Neck: supple Heart: RRR Respiratory: CTAB Gastrointestinal: soft Skin: normal turgor Neurological: no weakness Hosp A/P (1) ESRD (end stage renal disease) on dialysis Code(s): N18.6 - END STAGE RENAL DISEASE; Z99.2 - DEPENDENCE ON RENAL DIALYSIS Status: Chronic (2) HTN (hypertension) Code(s): I10 - ESSENTIAL (PRIMARY) HYPERTENSION Status: Chronic Qualifiers: (3) Pacemaker Code(s): Z95.0 - PRESENCE OF CARDIAC PACEMAKER Status: Chronic (4) Chest pain Code(s): R07.9 - CHEST PAIN, UNSPECIFIED Status: Acute - Plan Echo normal. severe LVH. Trops negative. CP stable. D/C home on [place]. f/u with SW cardio/nephro HD Wednesday per nephrology.
--- NOTE | 2019-07-30 21:35 | DIS ---
DATE OF ADMISSION: 07/28/2019 DATE OF DISCHARGE: 07/30/2019 DISCHARGE DIAGNOSES: Chest pain, most likely noncardiac, severe left ventricular hypertrophy, history of hypertension, coronary artery disease, follow up with Dr. Buckley at [facility], type 2 diabetes, hypertension, end-stage renal disease, on hemodialysis on Wednesday, Wednesday, and Wednesday, follow up with Dr. Bose, and hypothyroidism. CONSULTS: Dr. Spencer from General Surgery. PROCEDURES: Echocardiogram with EF of 55% to 60%, CVS, concentric LVH. CTA of the chest was without pulmonary embolism. HOSPITAL COURSE: This is a 49-year-old male who was admitted with retrosternal chest pain which does seem to be noncardiac, but the patient was admitted and monitored. His troponin was negative. Echo was unremarkable except for severe LVH due to his longstanding history of hypertension. CTA of the chest is negative for pulmonary embolism. The patient was feeling better. His pain was getting better. He was on pain medicine after his fistula procedure which was recently done. Dr. Spencer also evaluated while he was here and had no further recommendations other than following up at the outpatient clinic. CONDITION ON DISCHARGE: Stable. DISPOSITION: To home. DISCHARGE MEDICATIONS: 1. Gabapentin. 2. Carvedilol. 3. Lipitor. 4. Aspirin. 5. [place]. 6. Victoza. 7. Tizanidine. ALLERGIES: NO KNOWN DRUG ALLERGIES. SO NO MEDICATION CHANGES WAS DONE EXCEPT FOR STOPPING HIS COZAAR. THE PATIENT WAS SLIGHTLY ORTHOSTATIC AND ALSO HYPERKALEMIC, SO HIS COZAAR WAS HELD AND ADVISED TO FOLLOW WITH CARDIOLOGY FOR FURTHER RECOMMENDATIONS. WE WILL HOLD COZAAR FOR A WEEK OR SO. DISCHARGE FOLLOWUP: 1. With the primary care physician in 1 to 2 weeks. 2. With Cardiology in 1 to 2 weeks. 3. With Nephrology at dialysis clinic. Please note that I did spend more than 35 minutes coordinating the discharge care of this patient. Job ID: [id number]
== END 2019-07-30 15:20 | disposition home or self-care (01) ==
LOC: ERS 20:14 → 2SW 23:46
PROVIDERS: ADMIT Family Medicine; ATTEND Family Medicine
DX: R07.2 Precordial pain (principal); I25.10 Atherosclerotic heart disease of native coronary artery without angina pectoris; E87.5 Hyperkalemia; I13.2 Hypertensive heart and chronic kidney disease with heart failure and with stage 5 chronic kidney disease, or end stage renal disease; E11.22 Type 2 diabetes mellitus with diabetic chronic kidney disease; N18.6 End stage renal disease; I50.9 Heart failure, unspecified; E03.9 Hypothyroidism, unspecified; J98.11 Atelectasis; I25.2 Old myocardial infarction; Z79.82 Long term (current) use of aspirin; Z79.84 Long term (current) use of oral hypoglycemic drugs; Z79.899 Other long term (current) drug therapy; Z88.8 Allergy status to other drugs, medicaments and biological substances; Z95.0 Presence of cardiac pacemaker; Z99.2 Dependence on renal dialysis
CPT/HCPCS: 36415; 36416; 71046; 71275; 80048; 84484; 85025; 93005; 93306; 96372; 96374; 96375; 96376; G0378; J1650; J2270; J2405; Q9967